=== PATIENT | female | born 1970 | race Two or more races ===

== ENCOUNTER 2017-03-03 16:17 | Emergency (ER) | payer MEDICAID ==
[~2017-03-03] VITALS: Ht 152.4 cm; Wt 68.9 kg
[2017-03-03 16:56] VITALS: BP 94/53
[2017-03-03 17:57] LABS: APPEARANCE,URINE CLEAR; KETONES,URINE NEGATIVE (NEGATIVE); LEUKOCYTE ESTERASE ,URINE 1+ (NEGATIVE); MEAN CORPUSCULAR HEMOGLOBIN 29.2 PG (27.0-31.0); MEAN CORPUSCULAR HGB CONC 33.7 G/DL (32.0-36.0); MEAN CORPUSCULAR VOLUME 86 FL (80-99); MEAN PLATELET VOLUME 6.5 FL (6.5-10.1); NITRITE,URINE NEGATIVE (NEGATIVE); PH,URINE 6 (4.5-8.0); PLATELET COUNT 338 K/UL (150-450); PROTEIN,URINE NEGATIVE (NEGATIVE); RED BLOOD COUNT 3.93 M/UL (4.20-5.40); RED CELL DISTRIBUTION WIDTH 14.3 % (11.6-14.8); UROBILINOGEN,URINE NORMAL MG/DL (0.0-1.0); WHITE BLOOD COUNT 3.4 K/UL (4.8-10.8)
[2017-03-03 18:04] LABS: BACTERIA,URINE FEW /HPF; SQUAMOUS EPITHELIAL CELL,UR FEW /LPF (NONE/OCC)
[2017-03-03 18:09] LABS: ALANINE AMINOTRANSFERASE 15 U/L (3-33); ALBUMIN/GLOBULIN RATIO 1.3 (1.0-2.7); AMYLASE 92 U/L (10-110); ANION GAP 11 (5-15); ASPARTATE AMINO TRANSFERASE 21 U/L (5-40); CALCIUM 9.3 mg/dL (8.6-10.2); CARBON DIOXIDE 28 mEQ/L (20-30); CHLORIDE 103 mEQ/L (98-107); CREATININE 0.8 mg/dL (0.5-0.9); GLOMERULAR FILTRATION RATE > 60 mL/min (>60); HEMOLYSIS 2; LIPASE 68 U/L (< 60); POTASSIUM 3.9 mEQ/L (3.4-4.9); SODIUM 142 mEQ/L (135-145); TOTAL PROTEIN 7.7 g/dL (6.6-8.7)
--- NOTE | 2017-03-03 18:23 | Emergency Room Report ---
History of Present Illness General Chief Complaint: Abdominal Pain Source: Patient Present Illness HPI 46 YO Female presents to the ED C/O 05/06 in severity abdominal pain in epigastric and right upper and lower quadrants with vomiting bile.Patient states that she was hospitalized for almost 3 weeks at [facility] last month. Patient states that she recently was diagnosed with H. pylori and has been taking oral antibiotics with proton aches for almost 3 weeks. Patient states she has endoscopy scheduled for tomorrow with Dr. Farias. Patient states that her pain is not resolved since being discharged from [facility]. Patient states that she does not like to take narcotic pain medication however last night she had to take 3 Percocet in order to go to sleep. pt. states character of her pain has been consistent. She denies blood in the vomit or stool. She denies constipation, diarrhea or black tarry stools. Denies CP, Palpitations, LOC, AMS, dizziness, Changes in Vision, Sensation, paresthesias, or a sudden severe headache. Allergies: Coded Allergies: No Known Allergies (Unverified , 02/28/17) Patient History Past Medical History: see triage record Past Surgical History: none Pertinent Family History: none Last Menstrual Period: last week Reviewed Nursing Documentation: PMH: Agreed, PSxH: Agreed Nursing Documentation-PMH Past Medical History: No History, Except For Hx Cancer: Yes - non hodgkins, non cancerous breast tumor Hx Gastrointestinal Problems: Yes - h. pylori Review of Systems All Other Systems: negative except mentioned in HPI Physical Exam Vital Signs Date Time Temp Pulse Resp B/P Pulse Ox O2 Delivery O2 Flow Rate FiO2 03/03/17 16:38 97.9 93 18 94/53 100 Room Air Medical Decision Making PA Attestation Dr. Henry is my supervising Physician whom patient management has been discussed with. Diagnostic Impression: Primary Impression: Abdominal pain Qualified Codes: R10.13 - Epigastric pain ER Course 46 YO Female presents to the ED C/O 05/06 in severity abdominal pain in epigastric and right upper and lower quadrants with vomiting bile.Patient states that she was hospitalized for almost 3 weeks at [facility] last month. Patient states that she recently was diagnosed with H. pylori and has been taking oral antibiotics with proton aches for almost 3 weeks. Patient states she has endoscopy scheduled for tomorrow with Dr. Farias. Patient states that her pain is not resolved since being discharged from [facility]. Patient states that she does not like to take narcotic pain medication however last night she had to take 3 Percocet in order to go to sleep. pt. states character of her pain has been consistent. She denies blood in the vomit or stool. She denies constipation, diarrhea or black tarry stools. Denies CP, Palpitations, LOC, AMS, dizziness, Changes in Vision, Sensation, paresthesias, or a sudden severe headache. pt. states she is spotting and at the end of her period. Ddx considered but are not limited to Diverticulitis, acute appy, diarrhea,UC, PUD, GE, pancreatitis, gallstone Vital signs: are WNL, pt. is afebrile H&PE are most consistent with : PUD and hx of H.pylori, will do basic lab work to r/o acute infection, and evaluate gallbladder and Pancrease enzymes due to hx of vomiting bile. - HX and Charts reviewed from [facility] : GI ulcers which were biopsied and were positive for H.Pylori. ORDERS: -CBC - no evidence to suggest infection, wbc's are decreased , comparable with previous labs from [facility]. - CMP, lipase: unremarkable and are WNL. electrolytes ok. -UA: rbc's and occult blood consistent with pt. hx of spotting as she is currently ending period. ED INTERVENTIONS: - - 1000NS - 1 mg Ativan _ pt. states anti-emetics make her "crazy" declines zofran - Pt. declines IV morphine for her pain, states she wants to avoid narcotic pain medication - GI Cocktail PO d/w pt. that Dr. sanchez was contacted by supervising physician and that he recomends she follow up with Dr. Farias tomorrow. DISCHARGE: At this time pt. is stable for d/c to home. Will provide printed patient care instructions, and any necessary prescriptions. Care plan and follow up instructions have been discussed with the patient prior to discharge. Labs Test 03/03/17 17:47 White Blood Count 3.4 K/UL (4.8-10.8) Red Blood Count 3.93 M/UL (4.20-5.40) Hemoglobin 11.5 G/DL (12.0-16.0) Hematocrit 34.0 % (37.0-47.0) Mean Corpuscular Volume 86 FL (80-99) Mean Corpuscular Hemoglobin 29.2 PG (27.0-31.0) Mean Corpuscular Hemoglobin Concent 33.7 G/DL (32.0-36.0) Red Cell Distribution Width 14.3 % (11.6-14.8) Platelet Count 338 K/UL (150-450) Mean Platelet Volume 6.5 FL (6.5-10.1) Neutrophils (%) (Auto) % (45.0-75.0) Lymphocytes (%) (Auto) % (20.0-45.0) Monocytes (%) (Auto) % (1.0-10.0) Eosinophils (%) (Auto) % (0.0-3.0) Basophils (%) (Auto) % (0.0-2.0) Differential Total Cells Counted 100 Neutrophils % (Manual) 55 % (45-75) Lymphocytes % (Manual) 31 % (20-45) Monocytes % (Manual) 9 % (1-10) Eosinophils % (Manual) 4 % (0-3) Basophils % (Manual) 1 % (0-2) Band Neutrophils 0 % (0-8) Platelet Estimate Adequate Platelet Morphology Normal Hypochromasia 1+ Anisocytosis 1+ Urine Color Pale yellow Urine Appearance Clear Urine pH 6 (4.5-8.0) Urine Specific [place] 1.010 (1.005-1.035) Urine Protein Negative (NEGATIVE) Urine Glucose (UA) Negative (NEGATIVE) Urine Ketones Negative (NEGATIVE) Urine Occult Blood 5+ (NEGATIVE) Urine Nitrite Negative (NEGATIVE) Urine Bilirubin Negative (NEGATIVE) Urine Urobilinogen Normal MG/DL (0.0-1.0) Urine Leukocyte Esterase 1+ (NEGATIVE) Urine RBC 5-10 /HPF (0 - 2) Urine WBC 2-4 /HPF (0 - 2) Urine Squamous Epithelial Cells Few /LPF (NONE/OCC) Urine Bacteria Few /HPF (NONE) Sodium Level 142 mEQ/L (135-145) Potassium Level 3.9 mEQ/L (3.4-4.9) Chloride Level 103 mEQ/L (98-107) Carbon Dioxide Level 28 mEQ/L (20-30) Anion Gap 11 (5-15) Blood Urea Nitrogen 8 mg/dL (7-23) Creatinine 0.8 mg/dL (0.5-0.9) Estimat Glomerular Filtration Rate > 60 mL/min (>60) Glucose Level 94 mg/dL (74-106) Calcium Level 9.3 mg/dL (8.6-10.2) Total Bilirubin < 0.2 mg/dL (0.0-1.2) Aspartate Amino Transf (AST/SGOT) 21 U/L (5-40) Alanine Aminotransferase (ALT/SGPT) 15 U/L (3-33) Alkaline Phosphatase 62 U/L (35-104) Total Protein 7.7 g/dL (6.6-8.7) Albumin 4.4 g/dL (3.5-5.2) Globulin 3.3 g/dL Albumin/Globulin Ratio 1.3 (1.0-2.7) Amylase Level 92 U/L (10-110) Lipase 68 U/L (< 60) Last Vital Signs Date Time Temp Pulse Resp B/P Pulse Ox O2 Delivery O2 Flow Rate FiO2 03/03/17 16:56 97.9 18 94/53 100 Room Air 03/03/17 16:38 93 Disposition: HOME, SELF-CARE Condition: Stable Scripts Lidocaine HCl 2% Viscous (Lidocaine HCl 2% Viscous) 100 Ml Solution 15 ML ORAL QID Y for For Pain, #100 ML Prov: Alejandra Toussaint 03/03/17 Referrals: ARMANDO DE LUNA Patient Instructions: Abdominal Pain, Adult Additional Instructions: Take medications as directed. Follow up with Dr. Farias tomorrow for further evaluation. Return sooner to ED if new symptoms occur, or current symptoms become worse. - Please note that this Emergency Department Report was dictated using [employer] web architect technology software, occasionally this can lead to erroneous entry secondary to interpretation by the dictation equipment. Alejandra Toussaint Mar 03, 2017 18:23
[2017-03-03] MEDS ORDERED: LORazepam Inj 2mg/ml 1ml IV ONE (18:45)
[2017-03-03 19:23] LABS: ANISOCYTOSIS 1+; BAND NEUTROPHILS % (MANUAL) 0 % (0-8); BASOPHILS % (MANUAL) 1 % (0-2); EOSINOPHILS % (MANUAL) 4 % (0-3); HYPOCHROMASIA 1+; LYMPHOCYTES % (MANUAL) 31 % (20-45); NEUTROPHILS % (MANUAL) 55 % (45-75); PLATELET ESTIMATE ADEQUATE; PLATELET MORPHOLOGY NORMAL; TOTAL CELLS COUNTED 100
[2017-03-03] MEDS ORDERED: Mylanta II UD 30ml ORAL ONE (19:30)
[2017-03-03] MEDS ORDERED: Lidocaine 2% Visc 15ml soln ORAL ONE (19:30)
[2017-03-03] MEDS ORDERED: LIDOCAINE VISC100 ML ORAL (19:40)
[2017-03-03 20:29] VITALS: BP 91/57
[2017-03-03 20:37] VITALS: BP 91/57
== END 2017-03-03 20:37 | disposition home or self-care (01) ==
LOC: EMR 17:16
DX: R10.13 Epigastric pain (principal); Z85.72 Personal history of non-Hodgkin lymphomas
CPT/HCPCS: 36415; 80053; 81003; 82150; 83690; 85007; 85025; 96360; 96361; 96374